=== PATIENT | female | born 1945 | race Caucasian/White ===

== ENCOUNTER 2019-09-07 11:34 | Outpatient (CLI) | payer MEDICARE ==
--- NOTE | 2019-09-07 11:55 | RAD ---
Right finger 3 views: HISTORY: Cellulitis of finger of right hand swelling, redness and pain FINDINGS: No acute fracture or dislocation seen. There is cortical disruption involving the small portion of th e radial aspect of the shaft of the middle phalanx. This is suspicious for osteomyelitis.
== END 2019-09-07 11:35 | disposition home or self-care (01) ==
LOC: SCSRAD 11:34
PROVIDERS: ATTEND Nurse Practitioner Family
DX: L03.011 Cellulitis of right finger (principal)

== ENCOUNTER 2019-09-19 11:24 | Outpatient (CLI) | payer MEDICARE ==
--- NOTE | 2019-09-19 11:45 | RAD ---
XR Finger(s) Rt Min 2 View: 09/19/2019 12:00 AM CLINICAL INDICATION: Cellulitis COMPARISON: 09/07/2019 FINDINGS: Redemonstration of focal cortically based lucency involving the radial aspect of the fifth digit midd le phalanx. Adjacent linear lucency involving the anterior aspect may relate to an associated pathologic fracture. Overlying soft tissue prominence is similar. Scattered arthropathy is again seen . IMPRESSION: Persistent focal lucency involving radial aspect of the fifth digit middle phalanx. Associated, minim ally displaced pathologic fracture of the middle phalanx is suggested.
== END 2019-09-19 11:25 | disposition home or self-care (01) ==
LOC: SCSRAD 11:24
PROVIDERS: ATTEND Family Medicine
DX: L03.011 Cellulitis of right finger (principal); M86.9 Osteomyelitis, unspecified

== ENCOUNTER 2024-08-11 18:37 | Emergency (ER) | payer MEDICARE, OTHER ==
[2024-08-11] MEDS ORDERED: Morphine 4 MG/ML VIAL ONE (19:13)
[2024-08-11] MEDS ORDERED: Ketorolac Tromethamine 30 MG (1 mL) VIAL ONE (19:13)
== END 2024-08-11 19:58 | disposition home or self-care (01) ==
LOC: ERS 18:37
DX: S42.211A Unspecified displaced fracture of surgical neck of right humerus, initial encounter for closed fracture (principal); I10 Essential (primary) hypertension; E78.00 Pure hypercholesterolemia, unspecified; E03.9 Hypothyroidism, unspecified; Z79.82 Long term (current) use of aspirin; Z79.899 Other long term (current) drug therapy; W17.89XA Other fall from one level to another, initial encounter
CPT/HCPCS: 73060; 73564; J1885; J2272; 96374; 96375